=== PATIENT | male | born 1990 | race Caucasian/White ===

== ENCOUNTER 2018-09-12 16:26 | Emergency (ER) | payer OTHER ==
--- NOTE | 2018-09-12 17:26 | EDM.PDOC ---
<Tameka Norton - Last Filed: 09/12/18 17:15> ED HPI GENERAL MEDICAL PROBLEM - General Chief Complaint: Gastrointestinal Problem Stated Complaint: VOMITING X 2 DAYS Time Seen by Provider: 09/12/18 16:55 Source of Information: Reports: Patient, Family (), RN Notes Reviewed History Limitations: Reports: No Limitations - History of Present Illness INITIAL COMMENTS - FREE TEXT/NARRATIVE: Pk is a 28 year old male who presents to the ED with his , for 24 hours of vomiting, fever, congestion, abdominal pain and cough. He states that he has had a nonproductive cough and nasal congestion for about 2 weeks, but yesterday he had sudden onset vomiting and tactile fever. He states that on Sunday, he ate some burritos that had been sitting in his lunch box for two days. He also states that he is out in the cold all day for work, but he has no known sick contacts. He has a significant history of severe acid reflux which is treated with Dexlansoprazole and Omeprazole. He is not compliant with his medications. His states he had the same symptoms before his GERD was treated, and she feels very strongly he needs to take his medications. Patient currently is not nauseous, has a right sided headache that is throbbing in nature. He has not taken any OTC medications for this, but states ibuprofen usually helps with his headaches. He has a tickle in his throat, and complains of postnasal drip. He reports 8 episodes of emesis, without any blood. He has no hemoptysis. He denies any diarrhea, urinary burning, frequency or urgency, chest pain, or respiratory distress. When asking the patient what we can do for him today he states, "I don't know, I didn't want to come here". His states that he will need a note in order to return to work. She would also like us to make the patient take the medications for his GERD. He has a history of asthma, which he takes no medications for and has not had to use his rescue inhaler for 8+months. He also smokes cigarettes with a 7 pack year history. He denies any alcohol or drug use. - Related Data Allergies Allergy/AdvReac Type Severity Reaction Status Date / Time Penicillins Allergy Rash Verified 09/12/18 16:46 Home Meds: Home Meds Dexlansoprazole [Dexilant] 60 mg PO DAILY 07/08/18 [History] Omeprazole 40 mg PO DAILY 07/08/18 [History] Omeprazole 20 mg PO BIDAC #60 cap.sr 09/12/18 [Rx] Past Medical History Cardiovascular History: Reports: Other (See Below) Other Cardiovascular History: bradycardia Gastrointestinal History: Reports: GERD Psychiatric History: Reports: Autism, Other (See Below) Other Psychiatric History: aspbergers - Past Surgical History HEENT Surgical History: Reports: Other (See Below) Other HEENT Surgeries/Procedures: surgery for deviated septum Cardiovascular Surgical History: Reports: None GI Surgical History: Reports: None Musculoskeletal Surgical History: Reports: Other (See Below) Other Musculoskeletal Surgeries/Procedures:: surgery to left ankle Social & Family History - Family History Family Medical History: Noncontributory - Tobacco Use Smoking Status *Q: Current Every Day Smoker Years of Tobacco use: 14 Packs/Tins Daily: 0.5 - Caffeine Use Caffeine Use: Reports: None - Recreational Drug Use Recreational Drug Use: No ED ROS GENERAL - Review of Systems Review Of Systems: ROS reveals no pertinent complaints other than HPI. ED EXAM, GI/ABD - Physical Exam Exam: See Below Exam Limited By: No Limitations General Appearance: Alert, WD/WN, No Apparent Distress Eyes: Bilateral: Normal Appearance, EOMI Ears: Normal External Exam, Normal Canal, Hearing Grossly Normal, Normal TMs Nose: Normal Inspection, No Blood, Nasal Swelling, Nasal Drainage Throat/Mouth: Normal Lips, Normal Teeth, Normal Gums, Other (right tonsil swollen, no redness or exudates) Head: Atraumatic, Normocephalic Neck: Normal Inspection, Supple, Full Range of Motion, Lymphadenopathy (R). No : Tender Midline Respiratory/Chest: No Respiratory Distress, Lungs Clear, Decreased Breath Sounds (in the lower lobes bilaterally). No: Crackles, Rales, Rhonchi, Wheezing Cardiovascular: Normal Peripheral Pulses, Regular Rate, Rhythm, No Gallop, No Murmur, No Rub GI/Abdominal Exam: Normal Bowel Sounds, No Mass, Rigid, Tender Neurological: Alert, Oriented, Normal Cognition Skin Exam: Warm, Dry, Intact. No: Rash Course - Vital Signs Last Recorded V/S: Last Vital Signs Temp 97.8 F 09/12/18 16:43 Pulse 101 H 09/12/18 16:43 Resp 18 09/12/18 16:43 BP 138/82 09/12/18 16:43 Pulse Ox 95 09/12/18 16:43 Departure - Departure Disposition: Home, Self-Care 01 Clinical Impression: Vomiting - Discharge Information Prescriptions: Omeprazole 20 mg PO BIDAC #60 cap.sr Instructions: Nausea and Vomiting, Adult Referrals: PCP,Not In Area [Primary Care Provider] - Forms: ED Department Discharge Additional Instructions: Take your medications for acid reflux as prescribed. Take the omeprazole twice a day. Recommend follow-up with family medicine within 1 month for recheck of your symptoms. Here in [place] recommend Flory Ocampo or Ellie Johnston at the [facility]. Call [phone] to schedule with one of these providers. Recommend avoiding spicy foods. You may take nausea medication you have at home as needed for nausea and vomiting. Please return to the ER if your symptoms change or worsen. <Vanessa Guerrero - Last Filed: 09/12/18 22:03> ED HPI GENERAL MEDICAL PROBLEM - History of Present Illness INITIAL COMMENTS - FREE TEXT/NARRATIVE: I have seen the patient and agree with the HPI as documented by ELVIA Buckner. ED ROS GENERAL - Review of Systems Review Of Systems: See Below HEENT: Denies: Throat Pain GI/Abdominal: Reports: Vomiting. Denies: Nausea ED EXAM, GI/ABD - Physical Exam Exam: See Below Exam Limited By: No Limitations General Appearance: Alert, WD/WN, No Apparent Distress Nose: Normal Inspection Throat/Mouth: Normal Inspection (moist mucus membranes, right tonsil 3+, left 1+ ), Normal Lips Neck: Normal Inspection Respiratory/Chest: No Respiratory Distress, Lungs Clear Cardiovascular: Normal Peripheral Pulses, Regular Rate, Rhythm, No Murmur Course - Re-Assessments/Exams Free Text/Narrative Re-Assessment/Exam: 09/12/18 18:09 I have seen the patient and agree with the HPI, ROS and PE as documented by ELVIA Buckner Offered testing such as a CMP if he is concerned about his vomiting. He is in no distress and does not show any signs of dehydration. He is drinking mellow yellow in the ER. Recommend taking his medications. Offer zofran but reports they have this at home. Will discharge home, discharge instructions as documented. Departure - Departure Time of Disposition: 18:11 Condition: Good - Discharge Information *PRESCRIPTION DRUG MONITORING PROGRAM REVIEWED*: No *COPY OF PRESCRIPTION DRUG MONITORING REPORT IN PATIENT CHRISTIANO: No
== END 2018-09-12 18:39 | disposition home or self-care (01) ==
LOC: JD.ED 16:26
DX: R11.10 Vomiting, unspecified (principal); K21.9 Gastro-esophageal reflux disease without esophagitis; F17.210 Nicotine dependence, cigarettes, uncomplicated; Z88.0 Allergy status to penicillin; Z79.899 Other long term (current) drug therapy
CPT/HCPCS: 99283